=== PATIENT | female | born 1980 | race Caucasian/White ===

== ENCOUNTER 2017-10-14 13:29 | Emergency (ER) | payer OTHER ==
[2017-10-14 13:39] VITALS: BP 131/99
[2017-10-14] MEDS ORDERED: ALB18R INH (13:54)
[2017-10-14] MEDS ORDERED: KETOROLAC 60 MG/2 ML VIAL IM ONE (13:55)
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
[2017-10-14] MEDS ORDERED: DICL-195 PO (14:28)
== END 2017-10-14 14:40 | disposition home or self-care (01) ==
LOC: ER 13:46
DX: S90.31XA Contusion of right foot, initial encounter (principal)
CPT/HCPCS: 73590; 73630; 96372; 99283; J1885